=== PATIENT | female | born 1965 | race Two or more races ===

== ENCOUNTER 2020-02-15 07:46 | Outpatient (CLI) | payer OTHER ==
[~2020-02-15 07:46] MED LIST: CLONAZEPAM1 MG; KETO10TA2 PO; LOSARTAN POTASS50 MG; MELATONIN10 MG; NORVASC5 MG
== END 2020-02-15 07:58 | disposition home or self-care (01) ==
LOC: SONOGRAMA 07:46
PROVIDERS: ATTEND Pathology Anatomic Pathology & Clinical Pathology
DX: E04.1 Nontoxic single thyroid nodule (principal)